=== PATIENT | female | born 1940 | race Caucasian/White ===

== ENCOUNTER 2024-08-22 11:28 | Emergency (ER) | payer MEDICARE, MEDICAID ==
[~2024-08-22] VITALS: Ht 167.6 cm; Wt 80.0 kg
[2024-08-22 11:33] VITALS: BP 188/78; PULSE 70; RESP 16; O2SAT 100
[2024-08-22 13:26] VITALS: TEMP 98.7
[2024-08-22] MEDS: ACETAMINOPHEN 325MG TABLET PO ONE (13:26)
[2024-08-22] MEDS ORDERED: IBUP-2029 MT (15:06)
== END 2024-08-22 15:38 | disposition home or self-care (01) ==
LOC: ER 11:40
DX: M25.561 Pain in right knee (principal); M25.562 Pain in left knee; Z96.649 Presence of unspecified artificial hip joint; F10.90 Alcohol use, unspecified, uncomplicated; Y90.9 Presence of alcohol in blood, level not specified
CPT/HCPCS: 73562; 99284